=== PATIENT | female | born 1995 | race Caucasian/White ===

== ENCOUNTER 2018-12-08 21:17 | Emergency (ER) | payer BC, OTHER ==
[~2018-12-08 21:17] MED LIST: VENL37.594 PO
[2018-12-08] MEDS ORDERED: CALC-748 PO (21:30)
--- NOTE | 2018-12-08 21:30 | ER Report ---
History and Physical Time Seen By MD: 21:30 Hx. of Stated Complaint: pt reports a dull right side abdominal pain starting this morning. HPI/ROS CHIEF COMPLAINT: right lower abdominal pain, about 7-8 weeks HISTORY OF PRESENT ILLNESS: This is a 23 year old female. Started having some vague right lower abdominal pain a few weeks ago. Comes and goes. Seeming to become more frequent and more severe recently, wraps around to her right lower back. Having 1st trimester related trouble with nausea, but is taking B6 and Benadryl for this. No fevers or chills noted. she has normal urination and normal bowels. No shortness of breath or cough. No chest pain. No vaginal bleeding. No vaginal discharge. Allergies: Coded Allergies: Penicillins (Verified Allergy, Mild, rash, 10/26/17) Home Meds Reported Medications Calcium/Vit B12/Fa/Pyridoxine (FOLIC ACID-VIT B6-VIT B12 TAB) 1 Each Tablet, 1 EACH PO DAILY 12/08/18 Venlafaxine Hcl (EFFEXOR XR) 37.5 Mg Cap.er.24h, 37.5 MG PO QDAY 10/26/17 Reviewed Nurses Notes: Yes Smoking Status: Never Smoker Constitutional Vital Sign - Last 24 Hours 12/08/18 12/08/18 12/08/18 12/08/18 21:24 21:30 22:00 22:30 Temp 98.7 Pulse 65 91 63 63 Resp 16 B/P (MAP) 109/72 105/69 (81) 97/68 (78) 103/68 (80) Pulse Ox 94 95 99 92 O2 Delivery Room Air 12/08/18 12/09/18 12/09/18 23:00 00:00 00:30 Pulse 70 63 66 B/P (MAP) 104/67 (79) 106/66 (79) 102/71 (81) Pulse Ox 95 95 96 Physical Exam General Appearance: The patient is alert. No acute distress. Non-toxic in ap pearance. Eyes: Pupils are equal, round. No pallor, injection or icterus. ENT: Mucous membranes are moist. Normal oral mucosa. Posterior oropharynx is normal. Neck: Supple and non tender. Respiratory: Lungs are clear to auscultation. Cardiovascular: Regular rate and rhythm. No murmurs, gallops or rubs. Normal capillary refill. Gastrointestinal: Abdomen is soft. Discomfort in the right side of abdomen, but no rebound and non-surgical on exam. Nondistended. No masses or organomegaly. Normal active bowel sounds. No costovertebral angle tenderness with percussion. Neurological: Alert and oriented x3. No focal neurologic deficits Skin: Warm and dry. Musculoskeletal: Extremities are nontender. Full range of motion. No tenderness in palpation of the cervical, thoracic and lumbar spine. DIFFERENTIAL DIAGNOSIS: After history and physical exam, differential diagnosis was considered for abdominal pain in a female with first trimester including but not limited to related pain, ovarian cyst, ovarian torsion, urinary tract infection, and appendicitis. No signs of miscarriage Medical Decision Making Data Points Result Diagram: 12/08/18215112/08/182151 Laboratory Hematology Test 12/08/18 21:22 12/08/18 21:52 Urine Color Yellow Urine Clarity Clear Urine pH 7.0 pH (4.8-9.5) Urine Specific [place] 1.010 Urine Protein Negative mg/dL (NEGATIVE) Urine Glucose (UA) 50 mg/dL (NEGATIVE) Urine Ketones Trace mg/dL (NEGATIVE) Urine Blood Negative (NEGATIVE) Urine Nitrite Negative (NEGATIVE) Urine Bilirubin Negative (NEGATIVE) Urine Urobilinogen Negative mg/dL (0.2-1.9) Urine Leukocyte Esterase Small (NEGATIVE) Urine RBC None /HPF (0-2/HPF) Urine WBC 1 /HPF (0-5/HPF) Urine Squamous Epithelial Cells Moderate /LPF (</=FEW) Urine Bacteria Few /HPF (NONE-FEW) Urine Mucus None /HPF (NONE-FEW) Red Blood Count 4.72 M/uL (4.17-5.56) Mean Corpuscular Volume 94.6 fL (80.0-96.0) Mean Corpuscular Hemoglobin 32.5 pg (26.0-33.0) Mean Corpuscular Hemoglobin Concent 34.3 g/dL (32.0-36.0) Red Cell Distribution Width 13.0 % (11.5-14.5) Mean Platelet Volume 8.2 fL (7.2-11.1) Neutrophils (%) (Auto) 68.9 % (39.4-72.5) Lymphocytes (%) (Auto) 22.4 % (17.6-49.6) Monocytes (%) (Auto) 7.4 % (4.1-12.4) Eosinophils (%) (Auto) 0.8 % (0.4-6.7) Basophils (%) (Auto) 0.5 % (0.3-1.4) Nucleated RBC Relative Count (auto) 0.0 /100WBC Neutrophils # (Auto) 7.0 K/uL (2.0-7.4) Lymphocytes # (Auto) 2.3 K/uL (1.3-3.6) Monocytes # (Auto) 0.8 K/uL (0.3-1.0) Eosinophils # (Auto) 0.1 K/uL (0.0-0.5) Basophils # (Auto) 0.1 K/uL (0.0-0.1) Nucleated RBC Absolute Count (auto) 0.00 K/uL Sodium Level 136 mmol/L (137-145) Potassium Level 3.5 mmol/L (3.5-5.0) Chloride Level 105 mmol/L (98-107) Carbon Dioxide Level 23 mmol/L (22-31) Blood Urea Nitrogen 12 mg/dl (7-18) Creatinine 0.60 mg/dl (0.52-1.04) Glomerular Filtration Rate Calc > 60.0 Random Glucose 132 mg/dl (75-110) Calcium Level 8.8 mg/dl (8.4-10.2) Total Bilirubin 0.2 mg/dl (0.2-1.3) Aspartate Amino Transf (AST/SGOT) 20 U/L (0-35) Alanine Aminotransferase (ALT/SGPT) 27 U/L (0-56) Alkaline Phosphatase 41 U/L (0-126) Total Protein 6.5 g/dl (6.3-8.2) Albumin 4.1 g/dl (3.5-5.0) Human Chorionic Gonadotropin, Qual Positive (NEGATIVE) Human Chorionic Gonadotropin, Quant [id number] mIU/ml Chemistry Test 12/08/18 21:22 12/08/18 21:52 Urine Color Yellow Urine Clarity Clear Urine pH 7.0 pH (4.8-9.5) Urine Specific [place] 1.010 Urine Protein Negative mg/dL (NEGATIVE) Urine Glucose (UA) 50 mg/dL (NEGATIVE) Urine Ketones Trace mg/dL (NEGATIVE) Urine Blood Negative (NEGATIVE) Urine Nitrite Negative (NEGATIVE) Urine Bilirubin Negative (NEGATIVE) Urine Urobilinogen Negative mg/dL (0.2-1.9) Urine Leukocyte Esterase Small (NEGATIVE) Urine RBC None /HPF (0-2/HPF) Urine WBC 1 /HPF (0-5/HPF) Urine Squamous Epithelial Cells Moderate /LPF (</=FEW) Urine Bacteria Few /HPF (NONE-FEW) Urine Mucus None /HPF (NONE-FEW) White Blood Count 10.2 k/uL (4.5-11.0) Red Blood Count 4.72 M/uL (4.17-5.56) Hemoglobin 15.3 g/dL (12.0-16.0) Hematocrit 44.7 % (34.0-47.0) Mean Corpuscular Volume 94.6 fL (80.0-96.0) Mean Corpuscular Hemoglobin 32.5 pg (26.0-33.0) Mean Corpuscular Hemoglobin Concent 34.3 g/dL (32.0-36.0) Red Cell Distribution Width 13.0 % (11.5-14.5) Platelet Count 218 K/uL (150-450) Mean Platelet Volume 8.2 fL (7.2-11.1) Neutrophils (%) (Auto) 68.9 % (39.4-72.5) Lymphocytes (%) (Auto) 22.4 % (17.6-49.6) Monocytes (%) (Auto) 7.4 % (4.1-12.4) Eosinophils (%) (Auto) 0.8 % (0.4-6.7) Basophils (%) (Auto) 0.5 % (0.3-1.4) Nucleated RBC Relative Count (auto) 0.0 /100WBC Neutrophils # (Auto) 7.0 K/uL (2.0-7.4) Lymphocytes # (Auto) 2.3 K/uL (1.3-3.6) Monocytes # (Auto) 0.8 K/uL (0.3-1.0) Eosinophils # (Auto) 0.1 K/uL (0.0-0.5) Basophils # (Auto) 0.1 K/uL (0.0-0.1) Nucleated RBC Absolute Count (auto) 0.00 K/uL Glomerular Filtration Rate Calc > 60.0 Calcium Level 8.8 mg/dl (8.4-10.2) Total Bilirubin 0.2 mg/dl (0.2-1.3) Aspartate Amino Transf (AST/SGOT) 20 U/L (0-35) Alanine Aminotransferase (ALT/SGPT) 27 U/L (0-56) Alkaline Phosphatase 41 U/L (0-126) Total Protein 6.5 g/dl (6.3-8.2) Albumin 4.1 g/dl (3.5-5.0) Human Chorionic Gonadotropin, Qual Positive (NEGATIVE) Human Chorionic Gonadotropin, Quant [id number] mIU/ml Urinalysis Test 12/08/18 21:22 Urine Color Yellow Urine Clarity Clear Urine pH 7.0 pH (4.8-9.5) Urine Specific [place] 1.010 Urine Protein Negative mg/dL (NEGATIVE) Urine Glucose (UA) 50 mg/dL (NEGATIVE) Urine Ketones Trace mg/dL (NEGATIVE) Urine Blood Negative (NEGATIVE) Urine Nitrite Negative (NEGATIVE) Urine Bilirubin Negative (NEGATIVE) Urine Urobilinogen Negative mg/dL (0.2-1.9) Urine Leukocyte Esterase Small (NEGATIVE) Urine RBC None /HPF (0-2/HPF) Urine WBC 1 /HPF (0-5/HPF) Urine Squamous Epithelial Cells Moderate /LPF (</=FEW) Urine Bacteria Few /HPF (NONE-FEW) Urine Mucus None /HPF (NONE-FEW) EKG/Imaging Imaging ultrasound: Indication: Right-sided abdominal pain. Technique: Transabdominal and transvaginal imaging, with Doppler. Comparison: None available. position and heart rate: There is a single live early intrauterine gestation. The heart rate is 160. anatomy: Unremarkable. A small yolk sac is present. There are no signs of hemorrhage. Measurements, EFA, and EDC: The CRL measures 13.3 cm, corresponding to 7 weeks 5 days. The EDC is 07/22/2019. The maternal ovaries and adnexal structures appear unremarkable. Doppler images demonstrate no evidence of torsion. No adnexal mass, fluid collection, or free fluid is identified. IMPRESSION: There is a single live early intrauterine gestation. The estimated age is 7 weeks 5 days. No acute abnormalities are identified. Report Dictated By: Juan Manuel Manuel MD at 12/09/2018 12:23 AM ED Course/Re-evaluation ED Course Labs unremarkable and reassuring. Ultrasound with as noted above. Reviewed this with the patient and recommended follow-up with [facility] for further evaluation. Decision to Disposition Date: Dec 09, 2018 Decision to Disposition Time: 00:44 Depart Departure Latest Vital Signs Vital Signs Date Time Temp Pulse Resp B/P (MAP) Pulse Ox O2 Delivery O2 Flow Rate FiO2 12/09/18 00:30 66 102/71 (81) 96 12/08/18 21:24 98.7 16 Room Air Impression: Primary Impression: First trimester Additional Impression: Abdominal pain during in first trimester Condition: Improved Disposition: HOME OR SELF-CARE Referrals: BOAZ CARTER MD (PCP) Patient Instructions: Abdominal Pain (ED), First Trimester (ED) Additional Instructions: No changes at this time other than to increase fluid intake. Try taking small frequent sips. Keep using the vitamin B6 and Benadryl as needed. Call and make an appointment with [facility] for further evaluation. Pelvic rest as we discussed until you see [facility]. Problem Qualifiers BERNIE WALKER MD Dec 08, 2018 21:30
[2018-12-08 22:02] LABS: PLATELET COUNT, AUTOMATED 218 K/uL (150-450)
[2018-12-09 00:30] VITALS: BP 102/71
--- NOTE | 2018-12-09 00:36 | RADIOLOGY IMAGING REPORT ---
FACILITY: [facility] - [place] PATIENT NAME: Yee Hairston : 1995 MR: [id number] V: [id number] EXAM DATE: ORDERING PHYSICIAN: BERNIE WALKER TECHNOLOGIST: Location: [facility] - [place] Patient: Yee Hairston : 1995 Visit/Account:[id number] Date of Sevice: 12/08/2018 ultrasound: Indication: Right-sided abdominal pain. Technique: Transabdominal and transvaginal imaging, with Doppler. Comparison: None available. position and heart rate: There is a single live early intrauterine gestation. The heart r ate is 160. anatomy: Unremarkable. A small yolk sac is present. There are no signs of hemorrhage. Measurements, EFA, and EDC: The CRL measures 13.3 cm, corresponding to 7 weeks 5 days. The EDC is 06/25. The maternal ovaries and adnexal structures appear unremarkable. Doppler images demonstrate no eviden ce of torsion. No adnexal mass, fluid collection, or free fluid is identified. IMPRESSION: There is a single live early intrauterine gestation. The estimated age is 7 weeks 5 days. No acute abnormalities are identified. Report Dictated By: Juan Manuel Manuel MD at 12/09/2018 12:23 AM Report E-Signed By: Juan Manuel Manuel MD at 12/09/2018 12:31 AM WSN:[id number]
== END 2018-12-09 00:52 | disposition home or self-care (01) ==
LOC: ER 21:50
DX: O26.891 Other specified pregnancy related conditions, first trimester (principal); Z3A.01 Less than 8 weeks gestation of pregnancy
CPT/HCPCS: 76817; 81001; 82040; 82247; 82310; 82374; 82435; 82565; 82947; 84075; 84132; 84155; 84295; 84450; 84460; 84520; 84702; 84703; 85025; 99284

== ENCOUNTER 2019-02-10 22:02 | Emergency (ER) | payer OTHER ==
[~2019-02-10 22:02] MED LIST changes: +CALC-748 PO
[2019-02-10] MEDS ORDERED: NS(*) 0.9% 1000 ML BAG 1,000 ML IV ONE (22:15)
--- NOTE | 2019-02-10 22:16 | ER Report ---
History and Physical Time Seen By MD: 22:12 Hx. of Stated Complaint: PT REPORTS HAVING FEVER TYPE SYMTOMS WELL LOW RIGHT "OVARY" PAIN FOR 1 WEEK. PT 17 WEEKS . HPI/ROS CHIEF COMPLAINT: Fever, right lower abdominal pains HISTORY OF PRESENT ILLNESS: This is a 23-year-old female. She is 17 weeks along in . She has been having some fevers the last 24 hours. Low-grade fevers also with some congestion and mild cough. Denies any vomiting. Does have a little bit of upset stomach. His been having pain in the right lower abdomen near the right ovary since the beginning of . This pain seems a little worse recently. She describes the pain is intermittent. It is sharp and very severe and will last for a few seconds and then goes away and will pulse with this for about 10 seconds and then go away. There is no pain in between these times. She denies any urinary frequency but has had slight dysuria recently, stating in the middle of her urinary stream she will sometimes have some pain that feels like it's up in the bladder. Denies being short of breath and has no chest pain. No leakage of vaginal fluid or discharge, no vaginal bleeding. Allergies: Coded Allergies: Penicillins (Verified Allergy, Mild, rash, 02/10/19) Home Meds Reported Medications Calcium/Vit B12/Fa/Pyridoxine (FOLIC ACID-VIT B6-VIT B12 TAB) 1 Each Tablet, 1 EACH PO DAILY 12/08/18 Discontinued Reported Medications Venlafaxine Hcl (EFFEXOR XR) 37.5 Mg Cap.er.24h, 37.5 MG PO QDAY 10/26/17 Reviewed Nurses Notes: Yes Smoking Status: Never Smoker Hx Substance Use Disorder: No Hx Alcohol Use: No Constitutional Vital Sign - Last 24 Hours 02/10/19 02/10/19 02/10/19 02/10/19 22:06 22:07 22:18 22:30 Temp 99.9 Pulse 124 Resp 16 B/P (MAP) 118/77 (91) 118/77 106/65 (79) 112/67 (82) Pulse Ox 94 O2 Delivery Room Air 02/10/19 02/10/19 02/10/19 02/10/19 22:32 22:47 23:00 23:02 Pulse 102 90 84 B/P (MAP) 96/61 (73) Pulse Ox 93 94 94 02/10/19 02/10/19 02/10/19 02/10/19 23:17 23:30 23:32 23:47 Pulse 82 81 83 B/P (MAP) 95/59 (71) Pulse Ox 94 94 94 02/10/19 23:49 B/P (MAP) 98/64 (75) Intake and Output 02/10/19 02/10/19 02/11/19 14:59 22:59 06:59 Intake Total 1000 ml Balance 1000 ml Physical Exam General Appearance: The patient is alert. No acute distress. Eyes: Pupils are equal, round. No pallor, injection or icterus. ENT: Mucous membranes are moist. Normal oral mucosa. A little bit of erythema in the posterior oropharynx but no postnasal drainage or hypertrophy. Respiratory: Lungs are clear to auscultation. Cardiovascular: Regular rate and rhythm. No murmurs, gallops or rubs. Normal capillary refill. Gastrointestinal: Abdomen is soft. She does have some discomfort in the upper abdomen across the whole upper abdomen. No real pain with palpating in the right lower quadrant tonight, maybe just a little bit of discomfort there and in the suprapubic area. Normal active bowel sounds. No CVA tenderness. Neurological: Alert and oriented x3. No focal neurologic deficits Skin: Warm and dry. DIFFERENTIAL DIAGNOSIS: After history and physical exam, differential diagnosis was considered for patient with fever that has signs of likely upper respiratory viral process causing this, but will need to check urinalysis as well. Given the pattern of the pain in the right lower quadrant this been on and off and non- consistent since the beginning of I don't think this is related to her current fever and is fairly unremarkable on exam tonight. Medical Decision Making Data Points Result Diagram: 02/10/19 2220 02/10/19 2220 Laboratory Hematology Test 02/10/19 22:15 02/10/19 22:20 Urine Color Yellow Urine Clarity Clear Urine pH 6.0 pH (4.8-9.5) Urine Specific [place] 1.012 Urine Protein Negative mg/dL (NEGATIVE) Urine Glucose (UA) 150 mg/dL (NEGATIVE) Urine Ketones Negative mg/dL (NEGATIVE) Urine Blood Negative (NEGATIVE) Urine Nitrite Negative (NEGATIVE) Urine Bilirubin Negative (NEGATIVE) Urine Urobilinogen Negative mg/dL (0.2-1.9) Urine Leukocyte Esterase Negative (NEGATIVE) Urine RBC <1 /HPF (0-2/HPF) Urine WBC <1 /HPF (0-5/HPF) Urine Squamous Epithelial Cells Few /LPF (</=FEW) Urine Bacteria Few /HPF (NONE-FEW) Urine Mucus None /HPF (NONE-FEW) Red Blood Count 4.38 M/uL (4.17-5.56) Mean Corpuscular Volume 93.6 fL (80.0-96.0) Mean Corpuscular Hemoglobin 32.5 pg (26.0-33.0) Mean Corpuscular Hemoglobin Concent 34.7 g/dL (32.0-36.0) Red Cell Distribution Width 13.1 % (11.5-14.5) Mean Platelet Volume 7.1 fL (7.2-11.1) Neutrophils (%) (Auto) 84.5 % (39.4-72.5) Lymphocytes (%) (Auto) 8.0 % (17.6-49.6) Monocytes (%) (Auto) 4.1 % (4.1-12.4) Eosinophils (%) (Auto) 1.7 % (0.4-6.7) Basophils (%) (Auto) 1.7 % (0.3-1.4) Nucleated RBC Relative Count (auto) 0.0 /100WBC Neutrophils # (Auto) 4.6 K/uL (2.0-7.4) Lymphocytes # (Auto) 0.4 K/uL (1.3-3.6) Monocytes # (Auto) 0.2 K/uL (0.3-1.0) Eosinophils # (Auto) 0.1 K/uL (0.0-0.5) Basophils # (Auto) 0.1 K/uL (0.0-0.1) Nucleated RBC Absolute Count (auto) 0.00 K/uL Peripheral Blood Smear Yes Y/N Sodium Level 132 mmol/L (137-145) Potassium Level 3.5 mmol/L (3.5-5.0) Chloride Level 104 mmol/L (98-107) Carbon Dioxide Level 21 mmol/L (22-31) Blood Urea Nitrogen 6 mg/dl (7-18) Creatinine 0.50 mg/dl (0.52-1.04) Glomerular Filtration Rate Calc > 60.0 Random Glucose 96 mg/dl (75-110) Calcium Level 8.4 mg/dl (8.4-10.2) Total Bilirubin 0.4 mg/dl (0.2-1.3) Aspartate Amino Transf (AST/SGOT) 58 U/L (0-35) Alanine Aminotransferase (ALT/SGPT) 52 U/L (0-56) Alkaline Phosphatase 91 U/L (0-126) Total Protein 6.5 g/dl (6.3-8.2) Albumin 3.6 g/dl (3.5-5.0) Chemistry Test 02/10/19 22:15 02/10/19 22:20 Urine Color Yellow Urine Clarity Clear Urine pH 6.0 pH (4.8-9.5) Urine Specific [place] 1.012 Urine Protein Negative mg/dL (NEGATIVE) Urine Glucose (UA) 150 mg/dL (NEGATIVE) Urine Ketones Negative mg/dL (NEGATIVE) Urine Blood Negative (NEGATIVE) Urine Nitrite Negative (NEGATIVE) Urine Bilirubin Negative (NEGATIVE) Urine Urobilinogen Negative mg/dL (0.2-1.9) Urine Leukocyte Esterase Negative (NEGATIVE) Urine RBC <1 /HPF (0-2/HPF) Urine WBC <1 /HPF (0-5/HPF) Urine Squamous Epithelial Cells Few /LPF (</=FEW) Urine Bacteria Few /HPF (NONE-FEW) Urine Mucus None /HPF (NONE-FEW) White Blood Count 5.4 k/uL (4.5-11.0) Red Blood Count 4.38 M/uL (4.17-5.56) Hemoglobin 14.2 g/dL (12.0-16.0) Hematocrit 41.0 % (34.0-47.0) Mean Corpuscular Volume 93.6 fL (80.0-96.0) Mean Corpuscular Hemoglobin 32.5 pg (26.0-33.0) Mean Corpuscular Hemoglobin Concent 34.7 g/dL (32.0-36.0) Red Cell Distribution Width 13.1 % (11.5-14.5) Platelet Count 168 K/uL (150-450) Mean Platelet Volume 7.1 fL (7.2-11.1) Neutrophils (%) (Auto) 84.5 % (39.4-72.5) Lymphocytes (%) (Auto) 8.0 % (17.6-49.6) Monocytes (%) (Auto) 4.1 % (4.1-12.4) Eosinophils (%) (Auto) 1.7 % (0.4-6.7) Basophils (%) (Auto) 1.7 % (0.3-1.4) Nucleated RBC Relative Count (auto) 0.0 /100WBC Neutrophils # (Auto) 4.6 K/uL (2.0-7.4) Lymphocytes # (Auto) 0.4 K/uL (1.3-3.6) Monocytes # (Auto) 0.2 K/uL (0.3-1.0) Eosinophils # (Auto) 0.1 K/uL (0.0-0.5) Basophils # (Auto) 0.1 K/uL (0.0-0.1) Nucleated RBC Absolute Count (auto) 0.00 K/uL Peripheral Blood Smear Yes Y/N Glomerular Filtration Rate Calc > 60.0 Calcium Level 8.4 mg/dl (8.4-10.2) Total Bilirubin 0.4 mg/dl (0.2-1.3) Aspartate Amino Transf (AST/SGOT) 58 U/L (0-35) Alanine Aminotransferase (ALT/SGPT) 52 U/L (0-56) Alkaline Phosphatase 91 U/L (0-126) Total Protein 6.5 g/dl (6.3-8.2) Albumin 3.6 g/dl (3.5-5.0) Urinalysis Test 02/10/19 22:15 Urine Color Yellow Urine Clarity Clear Urine pH 6.0 pH (4.8-9.5) Urine Specific [place] 1.012 Urine Protein Negative mg/dL (NEGATIVE) Urine Glucose (UA) 150 mg/dL (NEGATIVE) Urine Ketones Negative mg/dL (NEGATIVE) Urine Blood Negative (NEGATIVE) Urine Nitrite Negative (NEGATIVE) Urine Bilirubin Negative (NEGATIVE) Urine Urobilinogen Negative mg/dL (0.2-1.9) Urine Leukocyte Esterase Negative (NEGATIVE) Urine RBC <1 /HPF (0-2/HPF) Urine WBC <1 /HPF (0-5/HPF) Urine Squamous Epithelial Cells Few /LPF (</=FEW) Urine Bacteria Few /HPF (NONE-FEW) Urine Mucus None /HPF (NONE-FEW) ED Course/Re-evaluation Clinical Indication for ER IV: Hydration, IV Access ED Course Urinalysis without signs of urinary tract infection but we will get a urine culture. The rest of labs unremarkable as well. Think this is likely a viral process and discussed this with the patient. Did offer to do an ultrasound based on her right lower abdominal pain but did not think this was indicated. There does not seem to be an indication to do an ultrasound of the at this point as well. Recommended fluids and rest as well as continued use of Tylenol. She will follow-up with her [facility] as planned and will return should symptoms worsen for reevaluation here. Decision to Disposition Date: Feb 10, 2019 Decision to Disposition Time: 23:41 Depart Departure Latest Vital Signs Vital Signs Date Time Temp Pulse Resp B/P (MAP) Pulse Ox O2 Delivery O2 Flow Rate FiO2 02/10/19 23:49 98/64 (75) 02/10/19 23:47 83 94 02/10/19 22:07 99.9 16 Room Air Impression: Primary Impression: Fever Additional Impression: Viral syndrome Condition: Improved Disposition: HOME OR SELF-CARE Referrals: BOAZ CARTER MD (PCP) Patient Instructions: Viral Syndrome (ED) Additional Instructions: Keep taking Tylenol as needed for fever or pain. Rest and increase fluids over the next few days. Follow-up with [facility] as planned. Return if worsening symptoms. Problem Qualifiers Primary Impression: Fever Fever type: unspecified Qualified Codes: R50.9 - Fever, unspecified BERNIE WALKER MD Feb 10, 2019 22:16
[2019-02-10 22:37] LABS: PLATELET COUNT, AUTOMATED 168 K/uL (150-450)
[2019-02-10 23:49] VITALS: BP 98/64
== END 2019-02-10 23:54 | disposition home or self-care (01) ==
LOC: ER 22:20
DX: O26.892 Other specified pregnancy related conditions, second trimester (principal); R50.9 Fever, unspecified; B34.9 Viral infection, unspecified; Z3A.17 17 weeks gestation of pregnancy
CPT/HCPCS: 81001; 85025; 87088; 96360; 99283; J7030; 82040; 82247; 82310; 82374; 82435; 82565; 82947; 84075; 84132; 84155; 84295; 84450; 84460; 84520

== ENCOUNTER 2019-02-14 09:33 | Inpatient (IN) | payer OTHER ==
[~2019-02-14] VITALS: Ht 162.6 cm; Wt 55.3 kg
--- NOTE | 2019-02-14 09:38 | ER Report ---
History and Physical Time Seen By MD: 09:38 HPI/ROS CHIEF COMPLAINT: [] HISTORY OF PRESENT ILLNESS: [must have 4 elements] REVIEW OF SYSTEMS: Constitutional: [No fever, no chills.] Eyes: [No discharge.] ENT: [No sore throat.] Cardiovascular: [No chest pain, no palpitations.] Respiratory: [No cough, no shortness of breath.] Gastrointestinal: [No abdominal pain, no vomiting.] Genitourinary: [No hematuria.] Musculoskeletal: [No back pain.] Skin: [No rashes.] Neurological: [No headache.] Allergies: Coded Allergies: Penicillins (Verified Allergy, Mild, rash, 02/10/19) Home Meds Reported Medications Calcium/Vit B12/Fa/Pyridoxine (FOLIC ACID-VIT B6-VIT B12 TAB) 1 Each Tablet, 1 EACH PO DAILY 12/08/18 Discontinued Reported Medications Venlafaxine Hcl (EFFEXOR XR) 37.5 Mg Cap.er.24h, 37.5 MG PO QDAY 10/26/17 Smoking Status: Never Smoker Hx Substance Use Disorder: No Hx Alcohol Use: No Constitutional Vital Sign - Last 24 Hours 02/14/19 02/14/19 02/14/19 02/14/19 09:42 09:44 10:00 10:03 Temp 98.2 Pulse 115 110 Resp 24 B/P (MAP) 117/75 (89) 117/75 109/71 (84) Pulse Ox 95 93 O2 Delivery Room Air 02/14/19 02/14/19 02/14/19 02/14/19 10:30 10:33 11:00 11:03 Pulse 113 109 B/P (MAP) 103/67 (79) 109/71 (84) Pulse Ox 92 97 02/14/19 02/14/19 02/14/19 02/14/19 11:30 11:35 12:00 12:05 Pulse 111 109 B/P (MAP) 103/65 (78) 103/71 (82) Pulse Ox 96 95 02/14/19 02/14/19 02/14/19 02/14/19 12:30 12:35 13:00 13:05 Pulse 115 114 B/P (MAP) 103/66 (78) 103/72 (82) Pulse Ox 98 99 02/14/19 02/14/19 02/14/19/24/19 13:30 13:35 13:40 13:45 Pulse 111 111 111 114 B/P (MAP) 110/69 (83) Pulse Ox 95 97 95 96 Physical Exam General Appearance: [The patient is alert, has no immediate need for airway protection and no signs of toxicity.] [ ] [Eyes:] [Pupils equal and round no pallor or injection.] [ENT, Mouth:] [Mucous membranes are moist.] Respiratory: [There are no retractions, lungs are clear to auscultation.] Cardiovascular: [Regular rate and rhythm.] [ ] Gastrointestinal: [Abdomen is soft and non tender, no masses, bowel sounds normal.] [Neurological:] [ ] [Skin:] [Warm and dry, no rashes.] [Musculoskeletal:] [Neck is supple non tender.] [Extremities are nontender, nonswollen and have full range of motion.] [ ] [DIFFERENTIAL DIAGNOSIS: After history and physical exam differential diagnosis was considered for] [ ] Medical Decision Making Data Points Result Diagram: 02/14/19 1014 02/14/19 1014 Laboratory Hematology Test 02/14/19 09:39 02/14/19 09:47 02/14/19 10:14 02/14/19 10:15 Urine Color Yellow Urine Clarity Slightly-cloudy Urine pH 5.0 pH (4.8-9.5) Urine Specific [place] 1.020 Urine Protein Negative mg/dL (NEGATIVE) Urine Glucose (UA) Negative mg/dL (NEGATIVE) Urine Ketones 80 mg/dL (NEGATIVE) Urine Blood Negative (NEGATIVE) Urine Nitrite Negative (NEGATIVE) Urine Bilirubin Negative (NEGATIVE) Urine Urobilinogen Negative mg/dL (0.2-1.9) Urine Leukocyte Esterase Small (NEGATIVE) Urine RBC None /HPF (0-2/HPF) Urine WBC 11 /HPF (0-5/HPF) Urine Squamous Epithelial Cells Many /LPF (</=FEW) Urine Transitional Epithelial Cells Moderate /LPF (NONE-FEW) Urine Bacteria Few /HPF (NONE-FEW) Urine Mucus Few /HPF (NONE-FEW) Influenza Virus Type A (PCR) Negative (NEGATIVE) Influenza Virus Type B (PCR) Negative (NEGATIVE) Red Blood Count 4.32 M/uL (4.17-5.56) Mean Corpuscular Volume 93.0 fL (80.0-96.0) Mean Corpuscular Hemoglobin 32.4 pg (26.0-33.0) Mean Corpuscular Hemoglobin Concent 34.8 g/dL (32.0-36.0) Red Cell Distribution Width 13.5 % (11.5-14.5) Mean Platelet Volume 7.4 fL (7.2-11.1) Neutrophils (%) (Auto) 87.2 % (39.4-72.5) Lymphocytes (%) (Auto) 9.9 % (17.6-49.6) Monocytes (%) (Auto) 1.9 % (4.1-12.4) Eosinophils (%) (Auto) 0.7 % (0.4-6.7) Basophils (%) (Auto) 0.3 % (0.3-1.4) Nucleated RBC Relative Count (auto) 0.0 /100WBC Neutrophils # (Auto) 7.9 K/uL (2.0-7.4) Lymphocytes # (Auto) 0.9 K/uL (1.3-3.6) Monocytes # (Auto) 0.2 K/uL (0.3-1.0) Eosinophils # (Auto) 0.1 K/uL (0.0-0.5) Basophils # (Auto) 0.0 K/uL (0.0-0.1) Nucleated RBC Absolute Count (auto) 0.00 K/uL Sodium Level 133 mmol/L (137-145) Potassium Level 3.5 mmol/L (3.5-5.0) Chloride Level 103 mmol/L (98-107) Carbon Dioxide Level 21 mmol/L (22-31) Blood Urea Nitrogen 8 mg/dl (7-18) Creatinine 0.60 mg/dl (0.52-1.04) Glomerular Filtration Rate Calc > 60.0 Random Glucose 81 mg/dl (75-110) Lactate 1.5 mmol/L (0.7-2.1) Calcium Level 8.3 mg/dl (8.4-10.2) Total Bilirubin 0.7 mg/dl (0.2-1.3) Aspartate Amino Transf (AST/SGOT) 116 U/L (0-35) Alanine Aminotransferase (ALT/SGPT) 143 U/L (0-56) Alkaline Phosphatase 141 U/L (0-126) C-Reactive Protein 8.3 mg/dl (<1.0) Total Protein 5.6 g/dl (6.3-8.2) Albumin 3.1 g/dl (3.5-5.0) Lipase 122 U/L (23-300) Monoscreen Negative (NEGATIVE) Chemistry Test 02/14/19 09:39 02/14/19 09:47 02/14/19 10:14 02/14/19 10:15 Urine Color Yellow Urine Clarity Slightly-cloudy Urine pH 5.0 pH (4.8-9.5) Urine Specific [place] 1.020 Urine Protein Negative mg/dL (NEGATIVE) Urine Glucose (UA) Negative mg/dL (NEGATIVE) Urine Ketones 80 mg/dL (NEGATIVE) Urine Blood Negative (NEGATIVE) Urine Nitrite Negative (NEGATIVE) Urine Bilirubin Negative (NEGATIVE) Urine Urobilinogen Negative mg/dL (0.2-1.9) Urine Leukocyte Esterase Small (NEGATIVE) Urine RBC None /HPF (0-2/HPF) Urine WBC 11 /HPF (0-5/HPF) Urine Squamous Epithelial Cells Many /LPF (</=FEW) Urine Transitional Epithelial Cells Moderate /LPF (NONE-FEW) Urine Bacteria Few /HPF (NONE-FEW) Urine Mucus Few /HPF (NONE-FEW) Influenza Virus Type A (PCR) Negative (NEGATIVE) Influenza Virus Type B (PCR) Negative (NEGATIVE) White Blood Count 9.1 k/uL (4.5-11.0) Red Blood Count 4.32 M/uL (4.17-5.56) Hemoglobin 14.0 g/dL (12.0-16.0) Hematocrit 40.2 % (34.0-47.0) Mean Corpuscular Volume 93.0 fL (80.0-96.0) Mean Corpuscular Hemoglobin 32.4 pg (26.0-33.0) Mean Corpuscular Hemoglobin Concent 34.8 g/dL (32.0-36.0) Red Cell Distribution Width 13.5 % (11.5-14.5) Platelet Count 125 K/uL (150-450) Mean Platelet Volume 7.4 fL (7.2-11.1) Neutrophils (%) (Auto) 87.2 % (39.4-72.5) Lymphocytes (%) (Auto) 9.9 % (17.6-49.6) Monocytes (%) (Auto) 1.9 % (4.1-12.4) Eosinophils (%) (Auto) 0.7 % (0.4-6.7) Basophils (%) (Auto) 0.3 % (0.3-1.4) Nucleated RBC Relative Count (auto) 0.0 /100WBC Neutrophils # (Auto) 7.9 K/uL (2.0-7.4) Lymphocytes # (Auto) 0.9 K/uL (1.3-3.6) Monocytes # (Auto) 0.2 K/uL (0.3-1.0) Eosinophils # (Auto) 0.1 K/uL (0.0-0.5) Basophils # (Auto) 0.0 K/uL (0.0-0.1) Nucleated RBC Absolute Count (auto) 0.00 K/uL Glomerular Filtration Rate Calc > 60.0 Lactate 1.5 mmol/L (0.7-2.1) Calcium Level 8.3 mg/dl (8.4-10.2) Total Bilirubin 0.7 mg/dl (0.2-1.3) Aspartate Amino Transf (AST/SGOT) 116 U/L (0-35) Alanine Aminotransferase (ALT/SGPT) 143 U/L (0-56) Alkaline Phosphatase 141 U/L (0-126) C-Reactive Protein 8.3 mg/dl (<1.0) Total Protein 5.6 g/dl (6.3-8.2) Albumin 3.1 g/dl (3.5-5.0) Lipase 122 U/L (23-300) Monoscreen Negative (NEGATIVE) Urinalysis Test 02/14/19 09:39 Urine Color Yellow Urine Clarity Slightly-cloudy Urine pH 5.0 pH (4.8-9.5) Urine Specific [place] 1.020 Urine Protein Negative mg/dL (NEGATIVE) Urine Glucose (UA) Negative mg/dL (NEGATIVE) Urine Ketones 80 mg/dL (NEGATIVE) Urine Blood Negative (NEGATIVE) Urine Nitrite Negative (NEGATIVE) Urine Bilirubin Negative (NEGATIVE) Urine Urobilinogen Negative mg/dL (0.2-1.9) Urine Leukocyte Esterase Small (NEGATIVE) Urine RBC None /HPF (0-2/HPF) Urine WBC 11 /HPF (0-5/HPF) Urine Squamous Epithelial Cells Many /LPF (</=FEW) Urine Transitional Epithelial Cells Moderate /LPF (NONE-FEW) Urine Bacteria Few /HPF (NONE-FEW) Urine Mucus Few /HPF (NONE-FEW) ED Course/Re-evaluation Decision to Disposition Date: Feb 14, 2019 Decision to Disposition Time: 13:52 Depart Departure Latest Vital Signs Vital Signs Date Time Temp Pulse Resp B/P (MAP) Pulse Ox O2 Delivery O2 Flow Rate FiO2 02/14/19 13:45 114 96 02/14/19 13:30 110/69 (83) 02/14/19 09:44 98.2 24 Room Air Impression: Primary Impression: Viral syndrome Additional Impressions: Fever Abdominal pain during Condition: Improved Disposition: Admitted from ER Referrals: BOAZ CARTER MD (PCP) Problem Qualifiers KIM GARBER DO Feb 14, 2019 09:38
[2019-02-14] MEDS ORDERED: NS(*) 0.9% 1000 ML BAG 1,000 ML IV ONE ×3 (10:06→15:40)
[2019-02-14] MEDS ORDERED: fentaNYL CITR 100 MCG/2 ML AMP IVP ONE ×3 (10:10→13:20)
[2019-02-14 10:31] LABS: PLATELET COUNT, AUTOMATED 125 K/uL (150-450)
--- NOTE | 2019-02-14 12:44 | RADIOLOGY IMAGING REPORT ---
FACILITY: [facility] - [place] PATIENT NAME: Yee Hairston : 1995 MR: [id number] V: [id number] EXAM DATE: ORDERING PHYSICIAN: KIM GARBER TECHNOLOGIST: Location: [facility] - [place] Patient: Yee Hairston : 1995 Visit/Account:[id number] Date of Sevice: 02/14/2019 GALLBLADDER HISTORY: . Abdominal pain. COMPARISON: None. FINDINGS: Gallbladder: Negative.. Bile ducts: There is no biliary ductal dilation with the CBD measuring 4 mm. Negative sonographic Mur phy's sign. Liver: Negative. Pancreas: Negative. Right kidney: Negative Upper abdominal aorta and IVC: Patent. Ascites: None visualized. Other findings: None significant IMPRESSION: 1. No acute abnormality Report Dictated By: Herminio Valenzuela MD at 02/14/2019 12:38 PM Report E-Signed By: Herminio Valenzuela MD at 02/14/2019 12:40 PM WSN:[id number]
--- NOTE | 2019-02-14 12:47 | RADIOLOGY IMAGING REPORT ---
FACILITY: [facility] - [place] PATIENT NAME: Yee Hairston : 1995 MR: [id number] V: [id number] EXAM DATE: ORDERING PHYSICIAN: KIM GARBER TECHNOLOGIST: Location: [facility] - [place] Patient: Yee Hairston : 1995 Visit/Account:[id number] Date of Sevice: 02/14/2019 RIGHT LOWER QUADRANT HISTORY: right sided abd pain COMPARISON: None FINDINGS: A high frequency transducer was used to evaluate the right lower quadrant/appendix. The appendix is seen and is normal diameter measuring 3 mm with compressibility. No fluid collection. IMPRESSION: 1. Normal appendix Report Dictated By: Herminio Valenzuela MD at 02/14/2019 12:40 PM Report E-Signed By: Herminio Valenzuela MD at 02/14/2019 12:41 PM WSN:[id number]
--- NOTE | 2019-02-14 12:55 | RADIOLOGY IMAGING REPORT ---
FACILITY: [facility] PATIENT NAME: Yee Hairston : 1995 MR: [id number] V: [id number] EXAM DATE: [id number] ORDERING PHYSICIAN: KIM GARBER TECHNOLOGIST: Location: [facility] Patient: Yee Hairston : 1995 Visit/Account:[id number] Date of Sevice: 02/14/2019 OB LIMITED HISTORY: abd pain, fever COMPARISON: 12/08/2018 TECHNIQUE: Transabdominal imaging was performed for assessment of the fetus and maternal pelvic structures. T ransvaginal imaging was not performed. FINDINGS: Placenta: Anterior without previa. Uterus: Gravid, otherwise normal Cervix: Long and closed. Maternal Ovaries: Not visualized. Maternal and other adnexa findings: Negative. Intrauterine gestations: One. presentation: Variable heart rate: Normal and regular at 155 bpm Amniotic fluid index: 15 cm Largest amniotic fluid pocket: 6.5 cm Gestational Parameters: BPD: 4.0 cm 18 weeks/ 2 days, 79 percentile HC: 15.5 cm 18 weeks/ 4 days, 84 percentile AC: 12.0 cm 17 weeks/ 5 days, 53 percentile FL: 2.4 cm 17 weeks/ 2 days, 32nd percentile Average ultrasound age (AUA): 18 weeks/0 days, UMAIR 07/18/2019 Estimated gestational age by UMAIR: 17 weeks/4 days, UMAIR 07/21/2019 Estimated weight (EFW): 201 grams +/- 29 grams EFW for UMAIR: 46 percentile Anatomic Survey: Not performed IMPRESSION: 1. Single fetus in variable presentation with normal heart rate. Placenta is anterior without previa. Normal BE. 2. Ultrasound age is 18 weeks 0 days. Size matches dates. Recommend follow-up ultrasound in 2-3 weeks to include full anatomic survey. Report Dictated By: Herminio Valenzuela MD at 02/14/2019 12:45 PM Report E-Signed By: Herminio Valenzuela MD at 02/14/2019 12:51 PM WSN:[id number]
[2019-02-14] MEDS ORDERED: ONDANSETRON 4 MG/2 ML VIAL IVP PRN (13:20)
[2019-02-14] MEDS ORDERED: NS(*) 0.9% 1000 ML BAG 1,000 ML IV PRN (13:20)
[2019-02-14] MEDS ORDERED: ONDANSETRON 4 MG/2 ML VIAL IVP ONE (14:00)
[2019-02-14] MEDS ORDERED: PEDI1TAB22 PO (14:23)
[2019-02-14 14:25] VITALS: BP 104/64; BMI 20.6
[2019-02-14 14:37] VITALS: BP 104/64
--- NOTE | 2019-02-14 15:25 | History & Physical ---
History of Present Illness Age of Patient: 23 : 1 Para or TPAL: 0 Estimated Gestational Age: 17 Chief Complaint This is a 23 year old at approximately 17 0/7 by LMP who is being see by Lety GARCIA for her PNC. PNR requested. Pt reports and uncomplicated thus far. She presented to the ER today with a fever X 5 days up to 102.0. She reports chills, joint and body pain and a trunk rash that began yesterday. This rash is not itchy. She denies bleeding or LOF. On Tuesday she woke up feeling very ill and nauseated, vomited X 1 and had some mid abdominal pain. She denies recent exposure to illness or contaminated foods. Her is not ill. She did have a minor sore throat, but that has resolved now. She does report consistent headaches since Tuesday as well, but they are relived with Tylenol. She denies significant neck pain or stiffness. She also been taking Tylenol for her fever and body aches, which has helped some. She does have a Cat, but does not change the litter box and has not been gardening, although her has been planting a lot of plants recently. Not sure if she is rubella immune, but is varicella immune and has not have any recent exposure to Zika. Her mother has Kellen's disease and prior to they have been watching her TSH, but that has not been done in a year. Her 2 aunts have RA. Denies any other auto immune diseases in her family. The last few days she has been so weak that her has had to help her get out of bed and get dressed. History Allergies: Coded Allergies: Penicillins (Verified Allergy, Mild, rash, 02/10/19) Family History: FH: hypercholesterolemia FATHER Kellen thyroiditis MOTHER Med Rec Home Meds Reported Medications Pediatric Multivit Comb No.28 (CHILD MULTIVITAMINS) 1 Each Tab.chew, 1 EACH PO, TAB.CHEW 02/14/19 Calcium/Vit B12/Fa/Pyridoxine (FOLIC ACID-VIT B6-VIT B12 TAB) 1 Each Tablet, 1 EACH PO DAILY 12/08/18 Discontinued Reported Medications Venlafaxine Hcl (EFFEXOR XR) 37.5 Mg Cap.er.24h, 37.5 MG PO QDAY 10/26/17 Review of Systems Constitutional: Fever (up to 102), Chills Neurological: Syncope, Weakness, Dizziness; No Slurred Speech Eyes: No Vision Change ENT: Sore Throat (since resolved, just feels kind of swollen now) Cardiovascular: Chest Pain Respiratory: No Shortness of Breath, No Cough Gastrointestinal: Nausea (on tuesday but none now), Vomiting (once on Tuesday); No Diarrhea, No Constipation; Abdominal Pain (epigastric pain most significant on Tuesday) Genitourinary: No Dysuria, No Hematuria Psychiatric: No Depression, No Anxiety Exam General Exam Vital Signs Vital Signs Date Time Temp Pulse Resp B/P (MAP) Pulse Ox O2 Delivery O2 Flow Rate FiO2 02/15/19 04:06 98.5 97 18 97/54 (68) 94 Room Air General Apperance: Alert/Awake/No Acute Distress, Other (Febrile) Neuro: Headache Eyes: Normal Extraocular Movement & Vison; No Visual Disturbances ENT: Normal, Oropharynx Clear, Posterior Pharynx Clear, Tonsils Normal Neck: No Masses, Other (full extension of neck without pain) Cardiovascular: Regular Rate and Rhythm, Edema (slight swelling in her hand and feet) Respiratory: No Respiratory Distress, Clear to Auscultation Abdomen: Gravid - Tender, Fundus - Tender, Active Bowel Sounds : Normal; No CVA Tenderness Musculoskeletal: Other (weakness and all over body and joint pain) Extremities: Warm, Pulses, Edema (not visible); No Tender Calves Integumentary: Other (trunk rash, non raised ertheyma); No Jaundice Psychological: Alert & Oriented X3, Appropriate Mood & Affect Fetus Heart Tones: 160 Heart Tone Variabilty: Absent Medical Decision Making Data Points Result Diagram: 02/14/19 1014 02/14/19 1717 Assessment and Plan 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 Her fever, rash, increased LFT's and malaise lead me to believe that this is self-limiting and will require supportive care and comfort. I will review the PNR once I have received that from Lety. In the meantime we will rule out various possibilities with blood tests. Hep screen is pending from the ER, mono neg, flu neg. Not concerned for viral meningitis as this time. Additional I will order: * TORCH screen * Lyme Disease screen * TSH * Repeat CMP & CBC in the am While we are awaiting these results we will provide supportive care with IVF, rest, and narcotics for pain if she needs them. (2) Rash in adult Onset Date: ~ 02/13/2019 Status: Acute (3) Malaise and fatigue Onset Date: ~ 02/10/2019 Status: Acute JOSE LUIS BENSON Feb 14, 2019 15:25
[2019-02-14] MEDS ORDERED: SALINE 0.65% NAS SPR 44 ML BTL PRN (15:40)
--- NOTE | 2019-02-14 18:04 | OB/GYN Progress Note ---
OB Subjective Progress Notes Subjective PT states she continues to have fevers, joint pains and nonpuritic rash on trunk and somewhat on arms. She does not feel movement yet but denies ctx, LOF or VB. OB Objective Physical Exam Vital Signs Date Time Temp Pulse Resp B/P (MAP) Pulse Ox O2 Delivery O2 Flow Rate FiO2 02/14/19 14:37 101.7 123 104/64 (77) 95 Room Air 02/14/19 14:25 18 General Appearance: Alert/Awake/No Acute Distress, Other (currently febrile, using ice pack for comfort) Abdomen: Other (soft, gravid, fundus at umbilicus and non tender. There is some mild RUQ tenderness with deep palpation) Musculoskeletal: Other (diffuse joint pain, NO nuchal rigidity ) Extremities: Warm Integumentary: Other (maculopapular blanching rash present on chest, abdomen and back. 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 Viral serologies (torch, parvo, hepatitis, lyme, [place]) ordered and pending. Blood cultures drawn, will continue broad spectrum abx until cultures negative. May use toradol for fever, no tyenol due to elevated LFTs. Pt may have diet. Plan of care discussed with MFM at [facility] who agrees current plan of care. FHT daily. ) GILL WILSON DO Feb 14, 2019 18:04
--- NOTE | 2019-02-14 18:13 | Hospitalist Consultation ---
History of Present Illness Requesting Physician Dr. Arteaga Reason for Consult Fever History of Present Illness This patient was admitted to the obstetrics service for fever of 102. She is currently 17 weeks gestation. She reports fever and generalized malaise over the past 4 days. She also developed a rash yesterday. She denies any upper respiratory or gastrointestinal symptoms History Problems: (1) First trimester Status: Acute Home Meds Reported Medications Pediatric Multivit Comb No.28 (CHILD MULTIVITAMINS) 1 Each Tab.chew, 1 EACH PO, TAB.CHEW 02/14/19 Calcium/Vit B12/Fa/Pyridoxine (FOLIC ACID-VIT B6-VIT B12 TAB) 1 Each Tablet, 1 EACH PO DAILY 12/08/18 Discontinued Reported Medications Venlafaxine Hcl (EFFEXOR XR) 37.5 Mg Cap.er.24h, 37.5 MG PO QDAY 10/26/17 Allergies: Coded Allergies: Penicillins (Verified Allergy, Mild, rash, 02/10/19) Patient History: FH: hypercholesterolemia FATHER Kellen thyroiditis MOTHER Hx Smoking: No Smoking Status: Never Smoker Exposure to Second Hand Smoke?: No Caffeine/Cups Per Day: ocasionaly Hx Alcohol Use: Yes (non since ) Alcohol Used: Wine Hx Substance Use Disorder: No Social Drug Use: Never History of IV Drug Use: No Review of Systems All Systems Reviewed/Normal: Yes, Except as Noted Constitutional: Fever Exam Vital Signs Vital Signs Date Time Temp Pulse Resp B/P (MAP) Pulse Ox O2 Delivery O2 Flow Rate FiO2 02/14/19 14:37 101.7 123 104/64 (77) 95 Room Air 02/14/19 14:25 18 Neuro: No Gross deficits Eyes: PERRLA Cardiovascular: Regular Rate and Rhythm Respiratory: Clear to Auscultation GI: Abd Soft and Non-Tender Extremities: No Edema Integumentary: No Cyanosis Medical Decision Making Data Points Result Diagram: 02/14/19 1014 02/14/19 1717 Assessment and Plan Problems: (1) Viral syndrome Status: Acute Assessment & Plan: She does have a fever, body aches, rash, and elevated liver enzymes. This likely represents a viral syndrome. Her studies were negative for influenza and the remainder of her studies including hepatitis panel are currently pending. We would recommend supportive care and fever control at this time. Also, her liver enzymes should be repeated and followed to normal. Venous Thromboembolism Antithrombotics Is Pt On Any Antithrombotics?: No Exam Sepsis Risk: Sepsis Risk CHARLIE FERRER DO Feb 14, 2019 18:12
[2019-02-14] MEDS: KETOROLAC 30 MG/ML VIAL IVP PRN (18:16)
[2019-02-14] MEDS: diphenhydrAMINE 50 MG/ML VIAL IVP PRN (18:16)
[2019-02-14] MEDS: NS 0.9% IV SCH (18:17)
[2019-02-14] MEDS: MEROPENEM IV SCH (18:17)
[2019-02-14] MEDS: MINI IV SCH (18:17)
[2019-02-14 19:36] VITALS: BP 104/60
[2019-02-14 22:46] VITALS: BP 96/49
[2019-02-15] MEDS: MEROPENEM IV SCH ×2 (01:00→09:06)
[2019-02-15] MEDS: NS 0.9% IV SCH ×2 (01:00→09:06)
[2019-02-15] MEDS: MINI IV SCH ×2 (01:00→09:06)
[2019-02-15] MEDS: KETOROLAC 30 MG/ML VIAL IVP PRN ×2 (02:30→09:05)
[2019-02-15 04:06] VITALS: BP 97/54
[2019-02-15 06:23] LABS: PLATELET COUNT, AUTOMATED 102 K/uL (150-450)
[2019-02-15 07:55] VITALS: BP 104/63
[2019-02-15] MEDS: diphenhydrAMINE 50 MG/ML VIAL IVP PRN ×2 (09:01→18:09)
[2019-02-15 12:07] VITALS: BP 104/64
[2019-02-15] MEDS: HYDROCORTISONE 1% CR 28.35 GM TP SCH ×2 (13:03→21:22)
--- NOTE | 2019-02-15 13:13 | Hospitalist Progress Note ---
Subjective Progress Notes Subjective 23F admitted for fever and abdominal pain. BILL overnight, continues to have rash on trunk. Feeling well this am. Physical Exam Vital Signs Date Time Temp Pulse Resp B/P (MAP) Pulse Ox O2 Delivery O2 Flow Rate FiO2 02/15/19 12:07 97.8 95 19 104/64 (77) 95 Room Air Intake and Output 02/15/19 07:00 Intake Total 3800 ml Output Total 600 ml Balance 3200 ml Intake Oral 800 ml IV Total 3000 ml Output Urine Total 600 ml General Appearance: Alert, Awake, No Acute Distress, Afebrile Neuro: No Gross deficits ENT: Normal Cardiovascular: Normal Rhythm & Peripheral Pulses Respiratory: No Respiratory Distress GI: Soft and Non-Tender Extremities: Soft and Non Tender, Warm, Pulses Integumentary: Other (diffuse papular rash primarily on trunk, some b/l UE.) Result Diagram: 02/15/19 0600 02/15/19 0600 Assessment and Plan Problems: (1) Viral syndrome Status: Acute Assessment & Plan: She does have a fever, body aches, rash, and elevated liver enzymes. This likely represents a viral syndrome. Her studies were negative for influenza and the remainder of her studies including hepatitis panel are currently pending. We would recommend supportive care and fever control at this time. Also, her liver enzymes should be repeated and followed to normal. LFT improving, consider stopping broad spectrum Abx coverage as 24 hour blood cultures NGTD. If no growth at 48 hours would strongly recommend deescalation of Abx. Exam Sepsis Risk: No Definite Risk DOWNEY LELAND NAVARRO DO Feb 15, 2019 13:13
[2019-02-15] MEDS ORDERED: BISACODYL 10 MG SUPP PR ONE (13:25)
[2019-02-15 14:45] VITALS: BP 97/78
[2019-02-15 14:49] VITALS: Ht 162.6 cm; Wt 55.3 kg
[2019-02-15] MEDS: IBUPROFEN 600 MG TAB PO PRN ×2 (15:17→23:18)
[2019-02-15 19:40] VITALS: BP 111/62
[2019-02-15] MEDS: MAGNESIUM HYDROXIDE* 30ML UDCP PO PRN (21:22)
[2019-02-16 01:11] VITALS: BP 102/61
[2019-02-16] MEDS ORDERED: ONDANSETRON 4 MG ODT TABDP SL PRN (06:05)
[2019-02-16] MEDS ORDERED: ONDANSETRON 4 MG ODT TABDP SL ONE (06:06)
[2019-02-16] MEDS: MAGNESIUM HYDROXIDE* 30ML UDCP PO PRN (06:13)
[2019-02-16] MEDS ORDERED: DOXY1TAB6 (06:28)
[2019-02-16] MEDS ORDERED: ONDA4TAB9 PO (06:28)
[2019-02-16 07:05] VITALS: BP 111/70
--- NOTE | 2019-02-16 08:27 | OB/GYN Progress Note ---
OB Subjective Progress Notes Subjective Pt feeling much better today. She states her rash is going down and the hives have stopped. She has not had a rash since 3 pm yesterday. Pt LOF or bleeding. No longer having abdominal pain. She is having n/v but that is related to her and is not new. She is having bowel movements and voiding regularly. OB Objective Physical Exam Vital Signs Date Time Temp Pulse Resp B/P (MAP) Pulse Ox O2 Delivery O2 Flow Rate FiO2 02/16/19 07:05 98.7 117 18 111/70 (84) 94 Room Air Intake and Output 02/16/19 07:00 Intake Total 2175 ml Output Total 2400 ml Balance -225 ml Intake Oral 800 ml IV Total 1375 ml Output Urine Total 2100 ml Oral Regurgitation 300 ml # Voids 1 # Emeses 2 General Appearance: Alert/Awake/No Acute Distress, Afebrile, Other (Febrile) Neurological: No Gross deficits, Headache Eyes: Normal Extraocular Movement & Vison ENT: Normal Cardiovascular: Normal Rhythm & Peripheral Pulses, Regular Rate and Rhythm, No Edema Respiratory: No Respiratory Distress, Clear to Auscultation Abdomen: Soft, Non-Tender, Non-Distended, Other (soft, gravid, fundus at umbilicus and non tender. ) Musculoskeletal: Other (diffuse joint pain, NO nuchal rigidity ) Extremities: Warm, Pulses, Edema (not visible); No Tender Calves Integumentary: Other (trunk rash, non raised ertheyma, decreased from yesterday. 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 Rash improving and no fever in over 12 hours. Viral serologies still pending. Pt will be d/c to home and f/u appt scheduled with me on Tuesday at 815 am. Potassium replaced today as well. (2) Rash in adult Onset Date: ~ 02/13/2019 Status: Acute (3) Malaise and fatigue Onset Date: ~ 02/10/2019 Status: Acute GILL WILSON DO Feb 16, 2019 08:27
[2019-02-16] MEDS ORDERED: IBUP600T22 PO (08:30)
[2019-02-16] MEDS ORDERED: POTASSIUM CHL 20 MEQ TABCR PO SCH (09:00)
[2019-02-16] MEDS: HYDROCORTISONE 1% CR 28.35 GM TP SCH (09:03)
--- NOTE | 2019-02-16 11:10 | Hospitalist Progress Note ---
Subjective Progress Notes Subjective She was admitted with fever and abdominal pain. She had no acute events overnight. She reports feeling much improved this morning. She plans to go home today. Patient Complains of: Cardiovascular: No: Chest Pain Respiratory: No: Shortness of Breath Physical Exam Vital Signs Date Time Temp Pulse Resp B/P (MAP) Pulse Ox O2 Delivery O2 Flow Rate FiO2 02/16/19 07:05 98.7 117 18 111/70 (84) 94 Room Air Intake and Output 02/16/19 01:00 Intake Total 2975 ml Output Total 2100 ml Balance 875 ml Intake Oral 1600 ml IV Total 1375 ml Output Urine Total 2100 ml # Voids 1 General Appearance: Alert, Awake, No Acute Distress, Afebrile Neuro: No Gross deficits Respiratory: No Respiratory Distress Extremities: Warm, Perfused Integumentary: Other (no hives present, rash improving) Psych: Alert & Oriented X3, Appropriate Mood & Affect Result Diagram: 02/16/1948 02/16/19545 Assessment and Plan Problems: (1) Viral syndrome Status: Acute Assessment & Plan: She does have a fever, body aches, rash, and elevated liver enzymes. This likely represents a viral syndrome. Her studies were negative for influenza and the remainder of her studies including hepatitis panel are currently pending. We would recommend supportive care and fever control. Her liver enzymes continue to trend downward. Broad spectrum Abx were stopped and blood cultures show no growth to date. She was encouraged to increase rest and hydration. She will follow up with OB next week. Exam Sepsis Risk: No Definite Risk MIC GALEANOP Feb 16, 2019 11:10
--- NOTE | 2019-02-16 19:19 | OB/GYN Progress Note ---
OB Objective Physical Exam Vital Signs Date Time Temp Pulse Resp B/P (MAP) Pulse Ox O2 Delivery O2 Flow Rate FiO2 02/16/19 07:05 98.7 117 18 111/70 (84) 94 Room Air Intake and Output 02/16/19 07:00 Intake Total 2175 ml Output Total 2400 ml Balance -225 ml Intake Oral 800 ml IV Total 1375 ml Output Urine Total 2100 ml Oral Regurgitation 300 ml # Voids 1 # Emeses 2 General Appearance: Alert/Awake/No Acute Distress, Afebrile, Other (Febrile) Neurological: No Gross deficits, Headache Eyes: Normal Extraocular Movement & Vison ENT: Normal Cardiovascular: Normal Rhythm & Peripheral Pulses, Regular Rate and Rhythm, No Edema Respiratory: No Respiratory Distress Abdomen: Soft, Non-Tender, Non-Distended, Other (soft, gravid, fundus at umbilicus and non tender. ) Musculoskeletal: Other (diffuse joint pain, NO nuchal rigidity ) Extremities: Warm, Pulses, Edema (not visible); No Tender Calves Integumentary: Other (trunk rash, non raised ertheyma, decreased from yesterday. Some rash on left thigh from where hives were); No Jaundice Psychological: Alert & Oriented X3, Appropriate Mood & Affect Result Diagram: 02/16/1954502/16/19545 Assessment and Plan Problems: (1) Fever and chills Onset Date: ~ 02/10/2019 Status: Acute Assessment & Plan: After patient was discharged I was notified by the lab that one of her blood cultures did turn positive with gram + cocci, no species identified at this time. The second blood culture remained negative. I called and notified pt. She denied any further fevers and stated she continued to feel better. I did opt to start the patient on oral antibiotics. Rx for bactrim DS x 7 days was sent to the pts pharmacy and pt agreed to pick it up this evening. Pt has an appt in my office on Tuesday for follow up. We will repeat her blood cultures at that time. Pt was instructed to return to ED immediately if fever returned or she was not feeling well. Pt expressed understanding. (2) Rash in adult Onset Date: ~ 02/13/2019 Status: Acute (3) Malaise and fatigue Onset Date: ~ 02/10/2019 Status: Acute GILL WILSON DO Feb 16, 2019 19:19
== END 2019-02-16 11:55 | disposition home or self-care (01) | DRG 833 ==
LOC: ER 09:48 → PED 14:04
PROVIDERS: ADMIT Obstetrics & Gynecology; ATTEND Obstetrics & Gynecology
DX: O98.512 Other viral diseases complicating pregnancy, second trimester (principal); Z88.0 Allergy status to penicillin; Z3A.17 17 weeks gestation of pregnancy
CPT/HCPCS: 36415; 76705; 76815; 80074; 81001; 82040; 82247; 82310; 82374; 82435; 82565; 82947; 83605; 83690; 84075; 84132; 84155; 84295; 84443; 84450; 84460; 84520; 85025; 85027; 85651; 86140; 86308; 86317; 86618; 86644; 86645; 86694; 86747; 86762; 86778; 86788; 87040; 87077; 87502; 96361; 96374; 96376; 99285; J1200; J1885; J2185; J3010; J7030; S0119

== ENCOUNTER → 2019-02-19 | Outpatient (CLI) | payer OTHER ==
[2019-02-15 14:49] VITALS: BMI 20.9
[~2019-02-19] MED LIST changes: +DOXY1TAB6; +IBUP600T22 PO; +ONDA4TAB9 PO; +PEDI1TAB22 PO; +SULF-198 PO
[2019-02-19 10:22] LABS: PLATELET COUNT, AUTOMATED 322 K/uL (150-450)
== END ==
LOC: LAB 08:47
PROVIDERS: ATTEND Obstetrics & Gynecology
DX: R94.5 Abnormal results of liver function studies (principal); A41.9 Sepsis, unspecified organism
CPT/HCPCS: 36415; 82040; 82247; 82310; 82374; 82435; 82565; 82947; 84075; 84132; 84155; 84295; 84450; 84460; 84520; 85025; 87040

== ENCOUNTER → 2019-02-27 | Outpatient (CLI) | payer OTHER ==
[2019-02-15 14:49] VITALS: BMI 20.9
== END ==
LOC: LAB 08:26
PROVIDERS: ATTEND Obstetrics & Gynecology
DX: Z34.02 Encounter for supervision of normal first pregnancy, second trimester (principal)
CPT/HCPCS: 36415; 82040; 82247; 82310; 82374; 82435; 82565; 82947; 84075; 84132; 84155; 84295; 84450; 84460; 84520

== ENCOUNTER 2019-03-20 15:15 | Emergency (ER) | payer OTHER ==
[2019-02-15 14:49] VITALS: Wt 56.2 kg
[2019-03-20 15:19] VITALS: BP 99/80
[2019-03-20] MEDS ORDERED: CETI10CA8 PO (15:25)
--- NOTE | 2019-03-20 15:40 | ER Report ---
History and Physical Time Seen By MD: 15:35 Hx. of Stated Complaint: PT REPORTS SLIPPING AND FALLING AT 1215 TODAY LANDING ON BUTTOCK. PT IS HERE TO GET BABY CHECKED OUT. PT REPORTS BEING 22 WEEKS , PT REPORTS SOME "LITTLE, SHARP, TWINGING PAINS" ON RIGHT SIDE OF ABDOMEN, DENIES BLEEDING/SPOTTING/NAUSEA/VOMITING. HPI/ROS CHIEF COMPLAINT: Slip and fall HISTORY OF PRESENT ILLNESS: This is a 23-year-old female who presents to the emergency department for slip and fall. Patient is a , 22 weeks . She states today she slipped on some snow approximately 4 hours prior to arrival, landed on her bottom. Since then she had a couple of twinges in her lower abdomen, but no sustained cramping, no vaginal discharge, no bleeding, no flank pain or any other complaints. She did call and talk to her REHABILITATION TEAM LEAD who is in [place], they recommended coming in for an evaluation. Patient states that her thus far has been going well. She denies hitting her head, no C- spine tenderness, but he is still actively moving. REVIEW OF SYSTEMS: Constitutional: No fever, no chills. Eyes: No discharge. ENT: No sore throat. Cardiovascular: No chest pain, no palpitations. Respiratory: No cough, no shortness of breath. Gastrointestinal: As above. REHABILITATION TEAM LEAD: As above. Genitourinary: No hematuria. Musculoskeletal: No back pain. Skin: No rashes. Neurological: No headache. Allergies: Coded Allergies: Penicillins (Verified Allergy, Mild, rash, 03/20/19) Home Meds Reported Medications Cetirizine Hcl (ZYRTEC) 10 Mg Capsule, 10 MG PO QDAY, CAPSULE 03/20/19 Ondansetron 4 Mg Odt (ONDANSETRON 4 MG ODT) 4 Mg Tab.rapdis, 4 MG PO PRN, TAB 02/16/19 Doxylamine Succinate/Vit B6 (Bonjesta ER 20-20 mg Tablet) 20 Mg-20 Mg Tab.ir. 02/16/19 Pediatric Multivit Comb No.28 (CHILD MULTIVITAMINS) 1 Each Tab.chew, 1 EACH PO, TAB.CHEW 02/14/19 Calcium/Vit B12/Fa/Pyridoxine (FOLIC ACID-VIT B6-VIT B12 TAB) 1 Each Tablet, 1 EACH PO DAILY 12/08/18 Discontinued Reported Medications Sulfamethoxazole/Trimet 800-160 Mg Tab (BACTRIM DS TABLET) 1 Each Tablet, 1 TAB PO Q12H, TAB 02/21/19 Discontinued Scripts Ibuprofen (IBUPROFEN) 600 Mg Tablet, 600 MG PO Q8H PRN for FEVER for 7 Days, #21 TAB 0 Refills Prov:GILL WILSON DO 02/16/19 Past Medical/Surgical History Patient has a past medical and surgical history of recent tooth extraction, GERD, , left ankle fracture, right middle finger fracture, right index finger fracture, depression. Reviewed Nurses Notes: Yes Hx Smoking: No Smoking Status: Never Smoker Exposure to Second Hand Smoke?: No Hx Substance Use Disorder: No Hx Alcohol Use: Yes (non since ) Constitutional Vital Sign - Last 24 Hours 03/20/19 15:19 Pulse 87 Resp 14 B/P (MAP) 99/80 Pulse Ox 95 O2 Delivery Room Air Physical Exam General Appearance: The patient is alert, has no immediate need for airway protection and no signs of toxicity. Eyes: Pupils equal and round no pallor or injection. ENT, Mouth: Mucous membranes are moist. Respiratory: There are no retractions, lungs are clear to auscultation. Cardiovascular: Regular rate and rhythm. Gastrointestinal: Abdomen is soft and non tender, no masses, bowel sounds normal. No flank pain. REHABILITATION TEAM LEAD: heart tones 135 bpm. Baby actively moving during palpation. Neurological: Alert and oriented 4. Moving all extremities. Following all commands. No focal neuro deficits. Skin: Warm and dry, no rashes. Musculoskeletal: Neck is supple non tender. Extremities are nontender, nonswollen and have full range of motion. DIFFERENTIAL DIAGNOSIS: After history and physical exam differential diagnosis was considered for contusion, placenta abruption, urinary tract infection, muscle strain. Medical Decision Making ED Course/Re-evaluation ED Course The patient was admitted to a room. A history and physical were obtained. Dif ferential diagnoses were considered. After a in-depth discussion with patient, [facility] staff did come down to evaluate the patient, the patient's heart tones were dopplered at 135 bpm, patient be was actively moving, patient had no vaginal discharge, no vaginal bleeding, she did have mild bilateral lower abdominal discomfort twinges of pain, no cramping like menstrual cramps, she does state that her back was mildly uncomfortable but not painful. Myself, the REHABILITATION TEAM LEAD nurse as well as the ear nurse talked with her at length about monitoring closely for vaginal discharge, vaginal bleeding increased pain or any other concerns, return to the emergency department immediately, patient expressed understanding, she will also follow up with her REHABILITATION TEAM LEAD who is in [place] for reevaluation. Patient had no other questions or concerns at this time and discharged home. Decision to Disposition Date: March 20, 2019 Decision to Disposition Time: 16:07 Depart Departure Latest Vital Signs Vital Signs Date Time Temp Pulse Resp B/P (MAP) Pulse Ox O2 Delivery O2 Flow Rate FiO2 03/20/19 15:19 87 14 99/80 95 Room Air Impression: Primary Impression: Fall (on) (from) other stairs and steps, initial encounter Additional Impression: Condition: Improved Disposition: HOME OR SELF-CARE Referrals: TUSHAR SPENCE MD (PCP) 5 Days Patient Instructions: Fall Prevention (ED), (ED), at 19 to 22 Weeks (ED), Trauma During (ED) Additional Instructions: Please be careful when walking. The baby heart tones were exactly where they should be, she is actively moving, no other concerning findings on exam. Please continue to monitor closely, if you have vaginal bleeding, miranda of fluid, suddenly develop a firm abdomen or any other concerning findings please return immediately. Follow up with your primary care provider and OB as scheduled. Drink plenty of water. Get plenty of rest. Take Tylenol as needed for pain. Problem Qualifiers Additional Impression: Weeks of gestation: 22 weeks Qualified Codes: Z3A.22 - 22 weeks gestation of G[employer]-BC March 20, 2019 15:40
== END 2019-03-20 16:16 | disposition home or self-care (01) ==
LOC: ER 15:45
DX: O26.892 Other specified pregnancy related conditions, second trimester (principal); Z3A.22 22 weeks gestation of pregnancy; W00.0XXA Fall on same level due to ice and snow, initial encounter
CPT/HCPCS: 99284

== ENCOUNTER 2019-06-06 10:37 | Outpatient (CLI) | payer OTHER ==
[~2019-06-06] VITALS: Ht 161.3 cm; Wt 64.0 kg
[~2019-06-06 10:37] MED LIST changes: +CETI10CA8 PO
[2019-06-06 10:45] VITALS: BP 106/66; Ht 161.3 cm; Wt 64.0 kg
== END 2019-06-06 12:09 | disposition home or self-care (01) ==
LOC: OB 10:37 → UNDOADMIN 10:37 → OB 10:37 → L&D 10:37 → UNDODISIN 12:09 → L&D 12:09 → EDSTATUS 07-28 15:39
PROVIDERS: ATTEND Obstetrics & Gynecology
DX: O36.8131 Decreased fetal movements, third trimester, fetus 1 (principal); Z3A.34 34 weeks gestation of pregnancy
CPT/HCPCS: 59025; 99213